=== PATIENT | female | born 2000 | race Two or more races ===

== ENCOUNTER 2023-06-09 16:09 | Emergency (ER) | payer OTHER ==
[2023-06-09 16:44] VITALS: BMI 26.6
[2023-06-09] MEDS ORDERED: SODIUM CHLORIDE 0.9% 500 ML INFUS.BAG IV ONE (16:48)
[2023-06-09] MEDS ORDERED: THIAMINE HCL 200 MG/2 ML VIAL IVPB ONE (16:48)
[2023-06-09] MEDS ORDERED: THIAMINE HCL 200 MG/2 ML VIAL ONE (17:12)
[2023-06-09 17:18] LABS: VENOUS BASE EXCESS -1.2 mmol/L (-2-2); VENOUS PCO2 33.5 mmHg (38-52); VENOUS PH 7.44 (7.310-7.410)
[2023-06-09 17:31] LABS: BASO % 0.4 % (0-2.0); EOS % 0.1 % (0-4.5); HEMATOCRIT 39.6 % (32.4-45.2); HEMOGLOBIN 13.2 GM/dL (10.7-15.3); MCH 27.1 pg (25.7-33.7); MCHC 33.3 g/dl (32.0-36.0); MEAN CELL VOLUME 81.3 fl (80-96); MEAN PLT VOLUME 7.4 fl (7.5-11.1); MONO % 4.4 % (3.8-10.2); NEUT % 73.1 % (42.8-82.8); PLATELET COUNT 288 10^3/uL (134-434); RBC 4.87 M/mm3 (3.60-5.2); RDW 13.4 % (11.6-15.6); WHITE BLOOD COUNT 10.8 K/mm3 (4.0-10.0)
[2023-06-09 17:39] LABS: CHLORIDE 110 mmol/L (98-107); POTASSIUM 3.6 mmol/L (3.5-5.1); SODIUM 143 mmol/L (136-145)
[2023-06-09 17:41] LABS: CALCIUM 8.4 mg/dL (8.5-10.1)
[2023-06-09 17:42] LABS: ALBUMIN 3.3 g/dl (3.4-5.0); ANION GAP 8 MMOL/L (8-16); BLOOD UREA NITROGEN 7.9 mg/dL (7-18); CO2 24 mmol/L (21-32); GLUCOSE,RANDOM 230 mg/dL (74-106); MAGNESIUM 1.7 mg/dL (1.8-2.4)
[2023-06-09 17:45] LABS: CREATININE 0.5 mg/dL (0.55-1.3); SGOT/AST 32 U/L (15-37); SGPT/ALT 49 U/L (13-61)
[2023-06-09 17:46] LABS: BILIRUBIN,TOTAL 0.8 mg/dL (0.2-1); TOT PROT 7.4 g/dl (6.4-8.2)
[2023-06-09 17:48] LABS: ALK PHOS 66 U/L (45-117)
[2023-06-09] MEDS ORDERED: METOCLOPRAMIDE HCL INJECTION 10 MG/2 ML VIAL IVPB ONE (18:06)
[2023-06-09] MEDS ORDERED: METOCLOPRAMIDE HCL INJECTION 10 MG/2 ML VIAL ONE (18:09)
[2023-06-09] MEDS ORDERED: MAGNESIUM SULF 50% (8.12 MEQ/2 ML-1 GM VIAL) IVPB ONE (18:31)
[2023-06-09] MEDS ORDERED: MAGNESIUM SULFATE IN WATER 2 GM/50 ML IVPB IVPB ONE (18:35)
[2023-06-09] MEDS ORDERED: MECLIZINE HCL 25 MG TABLET (FP) PO ONE (19:20)
[2023-06-09] MEDS ORDERED: MECLIZINE HCL 12.5 MG TABLET ONE (19:21)
[2023-06-09 21:45] VITALS: BP 136/88; PULSE 102; RESP 18; TEMP 97.2
== END 2023-06-09 21:55 | disposition home or self-care (01) ==
LOC: JER 16:09
PROC: 3E033NZ Introduction of Analgesics, Hypnotics, Sedatives into Peripheral Vein, Percutaneous Approach (ICD-10-PCS; principal; 2023-06-09)
PROC: 3E033GC Introduction of Other Therapeutic Substance into Peripheral Vein, Percutaneous Approach (ICD-10-PCS; 2023-06-09)
DX: R55 Syncope and collapse (principal); F12.920 Cannabis use, unspecified with intoxication, uncomplicated
CPT/HCPCS: 36415; 70450-TC; 71045-TC-FY; 80053; 82803; 82962; 83605; 83735; 84484; 84702; 85025; 93005; 93010; 99285-25